=== PATIENT | female | born 1950 | race Asian ===

== ENCOUNTER 2016-12-26 10:06 | Inpatient (IN) | payer OTHER ==
[~2016-12-26] VITALS: Ht 157.5 cm; Wt 66.2 kg
[2016-12-26] MEDS ORDERED: METFORMIN HCL500 M4 PO (11:17)
[2016-12-26] MEDS ORDERED: LOSARTAN POTAS100 MG PO (11:18)
[2016-12-26] MEDS ORDERED: PRAVASTATIN SOD40 MG PO (11:18)
[2016-12-26] MEDS ORDERED: GLIMEPIRIDE4 MG PO (11:19)
[2016-12-26 11:20] LABS: HEMATOCRIT 39.2 % (36.0-46.0); MCH 21.7 PG (29.0-34.0); MCHC 31.6 G/DL (30.0-36.0); MCV 68.5 FL (83-99); MEAN PLAT.VOLUME 9.6 uM^3 (9.5-12.4); PLATELET COUNT 214 K/uL (156-360); RBC DIS.WIDTH-CV 14.4 % (11.8-14.6); RBC DIS.WIDTH-SD 34.8 % (39-53); RED BLOOD COUNT 5.72 M/uL (3.80-5.20); WHITE BLOOD COUNT 18.9 K/uL (4.1-10.2)
[2016-12-26 11:44] LABS: ANION GAP 13 MEQ/L (2-14); CHLORIDE 92 MEQ/L (99-109); GFR ESTIMATE (CALCULATED) > 59 mL/min/; GLUCOSE 281 mg/dL (70-99); POTASSIUM 4.1 MEQ/L (3.7-5.4); SAMPLE HEMOLYSIS CHECK 0; SAMPLE ICTERIC CHECK 0; SAMPLE LIPEMIA CHECK 0; SODIUM 126 MEQ/L (136-147); UREA NITROGEN (BUN) 15 mg/dL (9-23)
[2016-12-26 11:48] LABS: TROP-I INTERPRETATION NEGATIVE; TROPONIN-I < 0.01 ng/mL (0.0-0.30)
[2016-12-26 11:58] LABS: INFLUENZA A VIRAL ANTIGEN NEGATIVE; INFLUENZA B VIRAL ANTIGEN NEGATIVE
[2016-12-26 15:54] LABS: ADD MIUA? YES; BILIRUBIN NEGATIVE; BLOOD MODERATE; COLOR YELLOW ((YELLOW)); GLUCOSE (STRIP) >=500; KETONES 20; LEUKOCYTES MODERATE; NITRITE NEGATIVE; PROTEIN (STRIP) 100; SPECIFIC GRAVITY 1.012 (1.000-1.030); UROBILINOGEN 0.2 MG/DL (0.2-1.0)
[2016-12-26 16:44] LABS: AMORPHOUS PHOSPHATE CRYSTALS 2+; BACTERIA 1+ /HPF; EPITHELIAL CELLS 1+ /HPF; RED BLOOD CELLS 0-5 /HPF (0-5); WHITE BLOOD CELLS TNTC /HPF (0-5)
[2016-12-26 16:45] LABS: HYALINE CASTS RARE /LPF; MUCUS TRACE /LPF
[2016-12-26 19:04] VITALS: BP 117/57
[2016-12-26 19:10] VITALS: BP 117/57
[2016-12-26 19:30] VITALS: BP 120/60
[2016-12-26 20:17] LABS: HEMATOCRIT 34.9 % (36.0-46.0); MCH 22.4 PG (29.0-34.0); MCHC 32.1 G/DL (30.0-36.0); MCV 69.9 FL (83-99); MEAN PLAT.VOLUME 9.9 uM^3 (9.5-12.4); PLATELET COUNT 178 K/uL (156-360); RBC DIS.WIDTH-CV 14.8 % (11.8-14.6); RBC DIS.WIDTH-SD 36.8 % (39-53); RED BLOOD COUNT 4.99 M/uL (3.80-5.20); WHITE BLOOD COUNT 16.1 K/uL (4.1-10.2)
[2016-12-26 20:25] LABS: ALKALINE PHOSPHATASE 94 IU/L (3-129); ANION GAP 12 MEQ/L (2-14); CHLORIDE 100 MEQ/L (99-109); GFR ESTIMATE (CALCULATED) > 59 mL/min/; GLUCOSE 216 mg/dL (70-99); POTASSIUM 4.1 MEQ/L (3.7-5.4); SAMPLE HEMOLYSIS CHECK 1; SAMPLE ICTERIC CHECK 0; SAMPLE LIPEMIA CHECK 0; SODIUM 131 MEQ/L (136-147); TOTAL BILIRUBIN 0.7 MG/DL (0.0-1.0); UREA NITROGEN (BUN) 12 mg/dL (9-23)
[2016-12-27 00:20] VITALS: BP 112/58
[2016-12-27 03:53] VITALS: BP 129/64
[2016-12-27 06:58] LABS: HEMATOCRIT 34.2 % (36.0-46.0); MCH 21.8 PG (29.0-34.0); MCHC 31.3 G/DL (30.0-36.0); MCV 69.7 FL (83-99); MEAN PLAT.VOLUME 9.9 uM^3 (9.5-12.4); PLATELET COUNT 187 K/uL (156-360); RBC DIS.WIDTH-CV 14.7 % (11.8-14.6); RBC DIS.WIDTH-SD 36.4 % (39-53); RED BLOOD COUNT 4.91 M/uL (3.80-5.20); WHITE BLOOD COUNT 15.7 K/uL (4.1-10.2)
[2016-12-27 07:09] LABS: ALKALINE PHOSPHATASE 101 IU/L (3-129); ANION GAP 11 MEQ/L (2-14); CHLORIDE 100 MEQ/L (99-109); GFR ESTIMATE (CALCULATED) > 59 mL/min/; GLUCOSE 213 mg/dL (70-99); SAMPLE HEMOLYSIS CHECK 0; SAMPLE ICTERIC CHECK 0; SAMPLE LIPEMIA CHECK 0; SODIUM 132 MEQ/L (136-147); TOTAL BILIRUBIN 0.7 MG/DL (0.0-1.0); UREA NITROGEN (BUN) 11 mg/dL (9-23)
[2016-12-27 09:00] VITALS: BP 123/57
[2016-12-27 11:28] LABS: POINT-OF-CARE METER ID UU13113781
[2016-12-27 12:30] VITALS: BP 140/63
[2016-12-27 18:00] VITALS: BP 149/67
[2016-12-28 03:08] VITALS: BP 145/79
[2016-12-28 07:47] LABS: ANION GAP 10 MEQ/L (2-14); CHLORIDE 104 MEQ/L (99-109); GFR ESTIMATE (CALCULATED) > 59 mL/min/; GLUCOSE 168 mg/dL (70-99); MAGNESIUM 1.6 mg/dl (1.3-2.7); POTASSIUM 3.8 MEQ/L (3.7-5.4); SAMPLE HEMOLYSIS CHECK 0; SAMPLE ICTERIC CHECK 0; SAMPLE LIPEMIA CHECK 0; SODIUM 135 MEQ/L (136-147); UREA NITROGEN (BUN) 9 mg/dL (9-23)
[2016-12-28 07:52] LABS: EOSINOPHIL (%) 0.5 % (0-5); EOSINOPHIL COUNT 0.1 K/uL (0-0.3); HEMATOCRIT 34.4 % (36.0-46.0); IMMATURE GRANULOCYTE (%) 0.8 % (0.0-0.7); IMMATURE GRANULOCYTE COUNT 0.1 K/uL; INSTRUMENT ABS NEUTROPHIL CT 7.7 K/uL; LYMPHOCYTE COUNT 1.4 K/uL (1.0-2.8); MCH 21.6 PG (29.0-34.0); MCHC 30.8 G/DL (30.0-36.0); MCV 70.1 FL (83-99); MONOCYTE (%) 9.1 % (3-12); MONOCYTE COUNT 0.9 K/uL (0-0.8); NEUTROPHIL (%) 75.4 % (45-76); NEUTROPHIL COUNT 7.7 K/uL (1.8-6.4); RBC DIS.WIDTH-CV 14.9 % (11.8-14.6); RBC DIS.WIDTH-SD 37.1 % (39-53); RED BLOOD COUNT 4.91 M/uL (3.80-5.20); WHITE BLOOD COUNT 10.3 K/uL (4.1-10.2)
[2016-12-28 08:32] VITALS: BP 131/63
[2016-12-28 11:50] VITALS: BP 142/67
[2016-12-28 15:39] VITALS: BP 160/74
[2016-12-28 20:28] LABS: MEAN PLAT.VOLUME 10.1 uM^3 (9.5-12.4); PLATELET COUNT 195 K/uL (156-360)
[2016-12-28 23:12] VITALS: BP 150/67
[2016-12-29 07:27] LABS: HEMATOCRIT 34.4 % (36.0-46.0); MCH 21.6 PG (29.0-34.0); MCHC 31.1 G/DL (30.0-36.0); MCV 69.5 FL (83-99); MEAN PLAT.VOLUME 9.4 uM^3 (9.5-12.4); PLATELET COUNT 236 K/uL (156-360); RBC DIS.WIDTH-CV 14.9 % (11.8-14.6); RBC DIS.WIDTH-SD 36.9 % (39-53); RED BLOOD COUNT 4.95 M/uL (3.80-5.20); WHITE BLOOD COUNT 10.5 K/uL (4.1-10.2)
[2016-12-29 07:40] VITALS: BP 147/73
[2016-12-29 07:41] LABS: ANION GAP 13 MEQ/L (2-14); CHLORIDE 102 MEQ/L (99-109); GFR ESTIMATE (CALCULATED) > 59 mL/min/; GLUCOSE 161 mg/dL (70-99); POTASSIUM 3.3 MEQ/L (3.7-5.4); SAMPLE HEMOLYSIS CHECK 0; SAMPLE ICTERIC CHECK 0; SAMPLE LIPEMIA CHECK 0; SODIUM 135 MEQ/L (136-147); UREA NITROGEN (BUN) 8 mg/dL (9-23)
[2016-12-29] MEDS ORDERED: CIPRO500 MG PO (09:44)
== END 2016-12-29 11:11 | disposition home or self-care (01) | DRG 872 ==
LOC: EME 10:06 → 2EASTP 16:20 → EDOF 16:20 → 4EAST 16:20 → 2EASTP 12-27 18:00
PROVIDERS: Emergency Medicine; Hospitalist; Internal Medicine; Urology
DX: A41.9 Sepsis, unspecified organism (principal); N13.6 Pyonephrosis; B96.4 Proteus (mirabilis) (morganii) as the cause of diseases classified elsewhere; E87.1 Hypo-osmolality and hyponatremia; E86.0 Dehydration; I10 Essential (primary) hypertension; E11.9 Type 2 diabetes mellitus without complications; E78.5 Hyperlipidemia, unspecified; Z87.442 Personal history of urinary calculi
CPT/HCPCS: 71020; 71275; 72192; 74175; 80048; 80053; 81003; 82948; 83605; 83735; 84484; 85025; 85027; 87040; 87077; 87086; 87186; 87502; 87801; 93005; 94799; 99281; 99285; J0290; J1644; J1815; J2543; J7030; J7050